=== PATIENT | male | born 1995 | race Caucasian/White ===

== ENCOUNTER 2017-08-16 22:13 | Emergency (ER) | payer SELFPAY ==
[2017-08-16] MEDS ORDERED: Naloxone 0.4 MG/ML Syringe IM ONE (22:14)
--- NOTE | 2017-08-16 22:20 | EDM.PDOC ---
ED HPI GENERAL MEDICAL PROBLEM - General Stated Complaint: UNRESPONSIVE, POSSIBLE OVERDOSE Time Seen by Provider: 08/16/17 22:20 Source of Information: Reports: Patient - History of Present Illness INITIAL COMMENTS - FREE TEXT/NARRATIVE: HISTORY AND PHYSICAL: History of present illness: [Patient was brought in by private vehicle with apparent opioid overdose, decreased respiratory effort, somewhat cyanotic on arrival with altered mental status Patient was provided Narcan 0.4 mg IM followed by IV followed by another dose IV He is sitting up talking cooperative in no apparent distress at this time he has known left eye injury ] Patient admits to using IV heroin prior to arrival Review of systems: As per history of present illness and below otherwise all systems reviewed and negative. Past medical history: As per history of present illness and as reviewed below otherwise noncontributory. Surgical history: As per history of present illness and as reviewed below otherwise noncontributory. Social history: No reported history of drug or alcohol abuse. Family history: As per history of present illness and as reviewed below otherwise noncontributory. Physical exam: HEENT: Atraumatic, normocephalic, pupils reactive on right left patient has previous eye injury hence see her regular pupil, negative for conjunctival pallor or scleral icterus, mucous membranes moist, throat clear, neck supple, nontender, trachea midline. Lungs: Clear to auscultation, breath sounds equal bilaterally, chest nontender. Heart: S1S2, regular, negative for clicks, rubs, or JVD. Abdomen: Soft, nondistended, nontender. Negative for masses or hepatosplenomegaly. Negative for costovertebral tenderness. Pelvis: Stable nontender. Genitourinary: Deferred. Rectal: Deferred. Extremities: Atraumatic, negative for cords or calf pain. Neurovascular unremarkable. Neuro: Awake, alert, oriented. Cranial nerves II through XII unremarkable. Cerebellum unremarkable. Motor and sensory unremarkable throughout. Exam nonfocal. Diagnostics: [CBC CMP UA Chest 1 view EKG ] Patient monitored for over 3 hours with no relapse he's been cooperative with desires to leave at this time Therapeutics: [Narcan 0.4 mg 3] 1 L normal saline bolus Impression: [Heroin overdose] Definitive disposition and diagnosis as appropriate pending reevaluation and review of above. R foot Pain Score (Numeric/FACES): 7 - Related Data Allergies Allergy/AdvReac Type Severity Reaction Status Date / Time No Known Allergies Allergy Verified 08/16/17 22:38 Home Meds: Home Meds . [No Known Home Meds] 08/16/17 [History] ED ROS GENERAL - Review of Systems Review Of Systems: See Below ED EXAM, GENERAL - Physical Exam Exam: See Below Course - Vital Signs Last Recorded V/S: Last Vital Signs Temp 99.1 F 08/16/17 23:22 Pulse 66 08/16/17 23:22 Resp 16 08/16/17 23:22 BP 164/65 H 08/16/17 23:22 Pulse Ox 96 08/16/17 23:22 - Orders/Labs/Meds Orders: Active Orders 24 hr Category Date Time Status EKG Documentation Completion [RC] STAT Care 08/16/17 22:19 Active Chest 1V Frontal [CR] Stat Exams 08/16/17 22:19 Taken UA W/MICROSCOPIC [URIN] Stat Lab 08/16/17 22:45 Ordered Labs: Laboratory Tests 08/16/17 08/16/17 08/16/17 Range/Units 22:14 22:14 22:45 WBC 15.67 H (4.0-11.0) K/uL RBC 4.88 (4.50-5.90) M/uL Hgb 16.2 (13.0-17.0) g/dL Hct 46.6 (38.0-50.0) % MCV 95.5 (80.0-98.0) fL MCH 33.2 H (27.0-32.0) pg MCHC 34.8 (31.0-37.0) g/dL RDW Std Deviation 48.6 (28.0-62.0) fl RDW Coeff of Tres 14 (11.0-15.0) % Plt Count 250 (150-400) K/uL MPV 9.80 (7.40-12.00) fL Neut % (Auto) 39.5 L (48.0-80.0) % Lymph % (Auto) 43.6 H (16.0-40.0) % [place] % (Auto) 13.9 (0.0-15.0) % Eos % (Auto) 2.7 (0.0-7.0) % Baso % (Auto) 0.3 (0.0-1.5) % Neut # (Auto) 6.2 H (1.4-5.7) K/uL Lymph # (Auto) 6.8 H (0.6-2.4) K/uL [place] # (Auto) 2.2 H (0.0-0.8) K/uL Eos # (Auto) 0.4 (0.0-0.7) K/uL Baso # (Auto) 0.1 (0.0-0.1) K/uL Nucleated RBC % 0.0 /100WBC Nucleated RBCs # 0 K/uL Sodium 139 (136-148) mmol/L Potassium 3.5 (3.5-5.1) mmol/L Chloride 104 (98-107) mmol/L Carbon Dioxide 23.4 (21.0-32.0) mmol/L BUN 35 H (7.0-18.0) mg/dL Creatinine 1.1 (0.8-1.3) mg/dL Est Cr Clr Drug Dosing 119.58 mL/min Estimated GFR (MDRD) > 60.0 ml/min Glucose 128 H (74-106) mg/dL Calcium 8.4 L (8.5-10.1) mg/dL Total Bilirubin 0.7 (0.2-1.0) mg/dL AST 44 H (15-37) IU/L ALT 117 H (14-63) IU/L Alkaline Phosphatase 71 (46-116) U/L Troponin I < 0.050 (0.000-0.056) ng/mL Total Protein 7.4 (6.4-8.2) g/dL Albumin 4.0 (3.4-5.0) g/dL Globulin 3.4 (2.0-3.5) g/dL Albumin/Globulin Ratio 1.2 L (1.3-2.8) Urine Color YELLOW Urine Appearance CLEAR Urine pH 6.0 (5.0-8.0) Ur Specific [place] >= 1.030 (1.001-1.035) Urine Protein TRACE (NEGATIVE) mg/dL Urine Glucose (UA) NEGATIVE (NEGATIVE) mg/dL Urine Ketones NEGATIVE (NEGATIVE) mg/dL Urine Occult Blood NEGATIVE (NEGATIVE) Urine Nitrite NEGATIVE (NEGATIVE) Urine Bilirubin NEGATIVE (NEGATIVE) Urine Urobilinogen 0.2 (<2.0) EU/dL Ur Leukocyte Esterase NEGATIVE (NEGATIVE) Urine RBC 0-1 (0-2/HPF) Urine WBC 0-2 (0-5/HPF) Ur Epithelial Cells RARE (NONE-FEW) Amorphous Sediment LIGHT (NEGATIVE) Urine Bacteria 1+ H (NEGATIVE) Urine Mucus LIGHT (NONE-MOD) Meds: Medications Discontinued Medications Generic Name Dose Route Start Last Admin Trade Name Savanna PRN Reason Stop Dose Admin Sodium Chloride 1,000 mls @ 999 mls/hr 08/16/17 22:42 08/16/17 22:43 Normal Saline IV 08/16/17 23:42 999 mls/hr .Bolus ONE Administration Sodium Chloride 1,000 mls @ 999 mls/hr 08/16/17 23:52 08/17/17 00:08 Normal Saline IV 08/17/17 00:52 999 mls/hr STAT ONE Administration Naloxone HCl 0.4 mg 08/16/17 22:41 08/16/17 22:44 Narcan IVPUSH 08/16/17 22:42 0.4 mg ONETIME ONE Administration Naloxone HCl 0.4 mg 08/16/17 22:41 08/16/17 22:44 Narcan IVPUSH 08/16/17 22:42 0.4 mg ONETIME ONE Administration Naloxone HCl 0.4 mg 08/16/17 22:14 08/16/17 23:45 Narcan IM 08/16/17 22:15 0.4 mg ONETIME ONE Administration Ondansetron HCl Confirm 08/16/17 22:22 08/16/17 22:44 Zofran Administered 08/16/17 22:23 Not Given Dose 8 mg .ROUTE .STK-MED ONE Ondansetron HCl 8 mg 08/16/17 22:41 08/16/17 22:44 Zofran IVPUSH 08/16/17 22:42 8 mg ONETIME ONE Administration Departure - Departure Time of Disposition: 01:12 Disposition: Home, Self-Care 01 Condition: Fair Clinical Impression: Drug overdose - Discharge Information Additional Instructions: The following information is given to patients seen in the emergency department who are being discharged to home. This information is to outline your options for follow-up care. We provide all patients seen in our emergency department with a follow-up referral. The need for follow-up, as well as the timing and circumstances, are variable depending upon the specifics of your emergency department visit. If you don't have a primary care physician on staff, we will provide you with a referral. We always advise you to contact your personal physician following an emergency department visit to inform them of the circumstance of the visit and for follow-up with them and/or the need for any referrals to a consulting specialist. The emergency department will also refer you to a specialist when appropriate. This referral assures that you have the opportunity for follow-up care with a specialist. All of these measure are taken in an effort to provide you with optimal care, which includes your follow-up. Under all circumstances we always encourage you to contact your private physician who remains a resource for coordinating your care. When calling for follow-up care, please make the office aware that this follow-up is from your recent emergency room visit. If for any reason you are refused follow-up, please contact the [facility] emergency department at and asked to speak to the emergency department charge nurse. - My Orders Last 24 Hours: My Active Orders 08/16/17 22:19 EKG Documentation Completion [RC] STAT Chest 1V Frontal [CR] Stat 08/16/17 22:45 UA W/MICROSCOPIC [URIN] Stat - Assessment/Plan Last 24 Hours: My Active Orders 08/16/17 22:19 EKG Documentation Completion [RC] STAT Chest 1V Frontal [CR] Stat 08/16/17 22:45 UA W/MICROSCOPIC [URIN] Stat
[2017-08-16] MEDS ORDERED: Ondansetron 4 MG/2 ML SDV ONE (22:22)
[2017-08-16] MEDS ORDERED: Naloxone 0.4 MG/ML Syringe ONE (22:30)
[2017-08-16] MEDS ORDERED: Ondansetron 4 MG/2 ML SDV IVPUSH ONE (22:41)
[2017-08-16] MEDS ORDERED: Naloxone 0.4 MG/ML Syringe IVPUSH ONE ×2 (22:41)
[2017-08-16] MEDS ORDERED: Sodium Chloride 0.9% 1,000 ML IV ONE ×2 (22:42→23:52)
[2017-08-16 23:11] LABS: CHLORIDE,CL 104 mmol/L (98-107); SODIUM,NA 139 mmol/L (136-148)
--- NOTE | 2017-08-17 13:16 | CR ---
EXAM DATE: 08/16/17 PATIENT'S AGE: 22 Patient: FEDE SALAS Facility: [place], [place] Site . Site : 1995 Study: XRay Chest [id number] 11:02:23 PM Ordering Physician: Nereyda Alva Final Report: HISTORY: OD, found unresponsive. FINDINGS: AP portable chest radiograph demonstrates kg leads overlying the thorax. Cardiac silhouette is at the upper limits of normal. Pulmonary vasculature is free of cephalization. No lobar consolidation or pleural effusion is seen. Bony structures are unremarkable. IMPRESSION: No acute cardiopulmonary disease. Dictated by Kenzie Mayer MD @ 08/16/2017 11:29:49 PM Dictated by: Kenzie Mayer MD @ 08/16/2017 23:30:09 (Electronic Signature) Report Signed by Proxy. [facility] CENTERWilmer
== END 2017-08-17 02:12 | disposition home or self-care (01) ==
LOC: MW.ED 22:13
DX: T40.1X1A Poisoning by heroin, accidental (unintentional), initial encounter (principal)
CPT/HCPCS: 36415; 71045; 80053; 81001; 84484; 85025; 93005; 96361; 96372; 96374; 96375; 99285; A9270; J2405; J7040; 99283